=== PATIENT | female | born 1970 | race Caucasian/White ===

== ENCOUNTER 2019-09-07 01:28 | Emergency (ER) | payer OTHER ==
[~2019-09-07] VITALS: Ht 175.3 cm; Wt 95.3 kg
[2019-09-07] MEDS ORDERED: AMBIEN 10 MG TA10 MG PO (02:12)
[2019-09-07] MEDS ORDERED: NAMENDA 5 MG TAB5 M1 PO (02:13)
[2019-09-07] MEDS ORDERED: HYDROXYZINE HCL25 M2 PO (02:13)
[2019-09-07] MEDS ORDERED: SINGULAIR 10 MG10 M1 PO (02:13)
[2019-09-07] MEDS ORDERED: LYRICA300 MG PO (02:13)
[2019-09-07] MEDS ORDERED: CYMBALTA60 MG PO (02:13)
[2019-09-07] MEDS ORDERED: XELJANZ XR11 MG PO (02:14)
[2019-09-07] MEDS ORDERED: SALAGEN5 MG PO (02:14)
[2019-09-07] MEDS ORDERED: VALTREX1000 MG PO (02:14)
[2019-09-07] MEDS ORDERED: MYRBETRIQ25 MG PO (02:14)
[2019-09-07] MEDS ORDERED: MARINOL5 MG PO (02:14)
[2019-09-07] MEDS ORDERED: MACROBID 100 M100 M2 PO (02:15)
[2019-09-07] MEDS ORDERED: ZOFRAN8 MG PO (02:15)
[2019-09-07 02:22] LABS: ABSOLUTE NEUTROPHILS 3.6 thou/uL (1.4-8.2); BASOPHILS 0.6 % (0.0-2.0); EOSINOPHILS 0.4 % (0.0-3.0); HEMATOCRIT 37.9 % (37.0-47.0); HEMOGLOBIN 12.2 gm/dL (12.0-15.0); MCH 28.7 pg (26.0-34.0); MCHC 32.2 g/dL (28.0-37.0); MCV 89.3 fL (80.0-100.0); MONOCYTES 10.2 % (1.0-8.0); PLATELET COUNT 183 thou/uL (150-400); POLYS 70.8 % (36.0-66.0); RBC 4.24 mil/uL (4.20-5.00); RDW 15.1 % (10.5-14.5)
[2019-09-07 02:25] LABS: ANION GAP 6 mmol/L (7-16); BUN 13 mg/dL (7-18); CALCIUM 8.3 mg/dL (8.5-10.1); CHLORIDE 104 mmol/L (98-107); CO2 27 mmol/L (21-32); GLUCOSE 64 mg/dL (74-106); POTASSIUM 3.7 mmol/L (3.5-5.1); SODIUM 137 mmol/L (136-145)
[2019-09-07 02:33] LABS: TROPONIN-I <0.06 ng/mL (<0.06)
[2019-09-07 04:12] LABS: URINE BILIRUBIN NEGATIVE (Negative); URINE BLOOD NEGATIVE (Negative); URINE CLARITY CLEAR; URINE COLOR YELLOW; URINE GLUCOSE-RANDOM* NEGATIVE (Negative); URINE KETONES NEGATIVE (Negative); URINE PROTEIN (DIPSTICK) NEGATIVE (Negative); URINE UROBILINOGEN 0.2 E.U./dl (0.2-1.0)
[2019-09-07 04:21] LABS: URINE LEUKOCYTES-REFLEX 1+ (Negative); URINE NITRITE-REFLEX POSITIVE (Negative)
[2019-09-07 04:24] LABS: SQUAMOUS 0-3 Few /LPF (0-3); URINE RBC 0-2 Rare /HPF (0-2); URINE WBC-REFLEX 6-15 Few /HPF (0-5)
[2019-09-07 04:25] LABS: BACTERIA-REFLEX >30 Many /HPF (None Seen); CASTS None Seen /LPF (None Seen); CRYSTALS None Seen /LPF (None Seen); MUCUS 0-3 Light strn/LPF (None Seen)
[2019-09-07] MEDS ORDERED: MACROBID 100 M100 M1 PO (04:29)
[2019-09-07 04:40] VITALS: BP 119/86
--- NOTE | 2019-09-07 08:45 | EKG ---
[place] [address] [address] [facility] [employer] [address] ELECTROCARDIOGRAM REPORT Name: KLYE TURNER Room #: DEP [facility]#: [id number] Admission: 09/07/19 Attend Phys: Discharge: 09/07/19 Date of : 70 Report #: [id number] THIS REPORT FOR: //name// [facility] ED Test Date: 2019-09-07 Test Time: 02:10:44 Pat Name: KYLE TURNER Department: Room: Gender: F [employer] Work[employer]: HEATHER : 1970 Requested By: Tyree Wills Order Number: [id number] MD: Elmer Mejia Measurements Intervals [place] Rate: 98 P: 41 DE: 166 QRS: 25 QRSD: 76 T: 13 QT: 332 QTc: 424 Interpretive Statements Sinus rhythm Abnormal R-wave progression, early transition Borderline T abnormalities, anterior leads No previous ECG available for comparison Electronically Signed On 09-07-2019 8:44:56 DIRECTOR OF PRODUCT DEVELOPMENT by Elmer Mejia [email or web address] <ELECTRONICALLY SIGNED> By: Elmer Mejia MD, [facility] 09/07/19 0844 0210 9 Elmer Mejia MD, FACC /EPI
== END 2019-09-07 04:41 | disposition home or self-care (01) ==
LOC: ER 01:28
PROVIDERS: Emergency Medicine
DX: N30.90 Cystitis, unspecified without hematuria (principal)